=== PATIENT | female | born 1960 | race Caucasian/White ===

== ENCOUNTER 2018-05-15 17:00 | Emergency (ER) | payer MEDICAID ==
[~2018-05-15] VITALS: Ht 162.6 cm; Wt 69.4 kg
[2018-05-15 17:29] VITALS: Ht 162.6 cm; Wt 69.4 kg
[2018-05-15 20:30] VITALS: BP 148/94
== END 2018-05-15 20:30 | disposition home or self-care (01) ==
LOC: ED 17:00
DX: S82.891A Other fracture of right lower leg, initial encounter for closed fracture (principal); W10.8XXA Fall (on) (from) other stairs and steps, initial encounter; Y93.89 Activity, other specified; Y92.89 Other specified places as the place of occurrence of the external cause; Y99.8 Other external cause status

== ENCOUNTER 2020-09-30 13:05 | Emergency (ER) | payer MEDICAID | END 2020-09-30 13:30 | disposition left against medical advice (07) | LOC: ED 13:05 | DX: Z53.21 Procedure and treatment not carried out due to patient leaving prior to being seen by health care provider (principal) ==